=== PATIENT | male | born 1985 | race Caucasian/White ===

== ENCOUNTER → 2022-01-16 | Outpatient (CLI) | payer OTHER ==
[2022-01-17 03:07] LABS: RUBELLA AB IGG-REFLAB 2.55 index (Immune >0.99)
[2022-01-17 11:07] LABS: RUBEOLA (MEASLES) IGG 15.1 AU/mL (Immune >16.4)
== END | disposition home or self-care (01) ==
LOC: LABMN 11:22
PROVIDERS: ATTEND Internal Medicine
DX: Z02.1 Encounter for pre-employment examination (principal)
CPT/HCPCS: 86706; 86735; 86762; 86765; 86787

== ENCOUNTER 2022-05-19 22:14 | Emergency (ER) | payer OTHER ==
[2022-05-20 00:31] LABS: ANION GAP 7 mmol/L (8-16); CALCIUM, TOTAL 8.8 mg/dL (8.8-10.5); CARBON DIOXIDE 32 mmol/L (22-29); CHLORIDE 101 mmol/L (98-107); CREATININE 1.05 mg/dL (0.60-1.30); GLUCOSE,RANDOM 114 mg/dL (70-110); POTASSIUM 3.8 mmol/L (3.5-5.1); SODIUM SERUM 140 mmol/L (136-145); UREA NITROGEN, BLOOD 17 mg/dL (7-18)
[2022-05-20 00:35] LABS: GLOMERULAR FILTR. RATE CALC > 60 mL/min (>60)
[2022-05-20 00:37] LABS: ALANINE AMINOTRANSFERASE 32 U/L (12-78); ALBUMIN 3.8 g/dL (3.4-5.0); ALKALINE PHOSPHATASE 127 U/L (46-116); ASPARTATE AMINOTRANSFERASE 30 U/L (15-37); BILIRUBIN,TOTAL 0.5 mg/dL (0.1-1.0); TOTAL PROTEIN, SERUM 7.4 g/dL (6.4-8.2)
[2022-05-20] MEDS ORDERED: EMTRICITABINE/TENOFOVIR 200-300 MG TABLET PO ONE (01:00)
[2022-05-20 01:10] LABS: BASOPHILS % (AUTO) 0.4 % (0.0-2.0); EOSINOPHILS % (AUTO) 2.9 % (1.0-6.0); HEMATOCRIT 42.9 % (41-53); HEMOGLOBIN 14.7 g/dL (13.5-17.5); LYMPHOCYTES # (AUTO) 3.2 K/uL (1.0-4.8); LYMPHOCYTES % (AUTO) 40.5 % (22.0-44.0); MEAN CORPUSCULAR HGB CONC 34.3 G/dL (31.0-37.0); MEAN CORPUSCULAR VOLUME 87 fL (80-100); MONOCYTES # (AUTO) 0.4 K/uL (0.1-1.0); MONOCYTES % (AUTO) 5.4 % (2.0-9.0); NEUTROPHILS % (AUTO) 50.8 % (40.0-70.0); PLATELET COUNT (AUTO) 188 K/uL (150-450); RED BLOOD CELL COUNT(AUTO) 4.91 MIL/uL (4.50-5.90); RED CELL DISTRIBUTION WIDTH 12.8 % (11.5-14.5)
[2022-05-20] MEDS ORDERED: DOLUTEGRAVIR SODIUM 50 MG TABLET PO ONE (01:15)
[2022-05-20] MEDS ORDERED: DOLUTEGRAVIR SODIUM 50 MG TABLET PO SCH (01:15)
[2022-05-20] MEDS ORDERED: PERTUSS(ACELL),DIPH,TET VAC/PF 0.5 ML SYRINGE IM. ONE (02:45)
[2022-05-23 03:06] LABS: HEPATITIS C AB (EIA) >11.0 s/co ratio (0.0-0.9); HIV 1-2 SCREEN 4TH GEN W/RFLX Non Reactive (Non Reactive)
[2022-05-25 13:06] LABS: HEPATITIS C RT-PCR,QNT HCV Not Detected IU/mL
== END 2022-05-20 03:56 | disposition home or self-care (01) ==
LOC: EMS 22:27
DX: S61.235A Puncture wound without foreign body of left ring finger without damage to nail, initial encounter (principal); Z88.8 Allergy status to other drugs, medicaments and biological substances; W46.0XXA Contact with hypodermic needle, initial encounter; Y93.89 Activity, other specified; Y92.89 Other specified places as the place of occurrence of the external cause; Y99.8 Other external cause status
CPT/HCPCS: 80053; 85025; 86706; 86803; 87340; 87389; 87522; 90471; 90715; 96372; 99283